=== PATIENT | male | born 1980 | race American Indian/Alaskan Native ===

== ENCOUNTER 2018-10-05 23:01 | Emergency (ER) | payer MEDICAID ==
[2018-10-05 23:12] VITALS: BMI 61.7
[2018-10-05 23:31] VITALS: RESP 18; TEMP 98.6
--- NOTE | 2018-10-05 23:43 | ED PDOC ---
Arrival/HPI - General Chief Complaint: Male Genitourinary - History of Present Illness Narrative History of Present Illness (Text): 10/05/18 23:38 38 y/o male, pmh including htn/gastritis, nkda, c/o hematuria on and off x 2-3 days. Pt. stated that he has on off hematuria x 2-3 days, last episode tonight, usually at the end of the urination, admits dysuria and holding his urine when he doesn't have bathroom around but no weakness in stream of urine, no night sweat, no flank pain, no fever or chills, no change in vision, no numbness or tingling, no other medical or psychological complaints. Past Medical History - Provider Review Nursing Documentation Reviewed: Yes - Tetanus Immunization Tetanus Immunization: Unknown - Cardiac Hx Hypertension: Yes - Pulmonary Hx Respiratory Disorders: Yes (bronchitis, smokes marijuana, sleep apnea) - Musculoskeletal/Rheumatological Hx Musculoskeletal Disorders: Yes (arthritis L hand, walks with a cane at home) - Gastrointestinal Hx Gastrointestinal Disorders: Yes (galbladder removed, hernia, GERD) Hx Gastroesophageal Reflux: Yes - Psychiatric Hx Depression: No Hx Emotional Abuse: No Hx Physical Abuse: No Hx Substance Use: Yes - Surgical History Hx Musculoskeletal Surgery: Yes (R knee surgery) - Suicidal Assessment Feels Threatened In Home Enviroment: No Family/Social History - Physician Review Nursing Documentation Reviewed: Yes Family/Social History: Unknown Family HX Smoking Status: Never Smoked Hx Alcohol Use: No Hx Substance Use: Yes Substance used: Marijuana Hx Substance Use Treatment: No Allergies/Home Meds Allergies/Adverse Reactions: Allergies No Known Allergies Allergy (Verified 07/13/12 13:26) Home Medications: Home Meds Medication Instructions Recorded Confirmed Omeprazole [PrilOSEC] 20 mg PO BID 07/13/12 10/05/18 Albuterol/Ipratropium [Combivent] 2 puff IH Q12 PRN 07/15/12 10/05/18 cloNIDine [clonidine HCl] 0.1 mg PO TID 07/15/12 10/05/18 Furosemide [Lasix] 40 mg PO DAILY 10/05/18 10/05/18 Lisinopril [Zestril] 20 mg PO DAILY 10/05/18 10/05/18 Review of Systems - Review of Systems Constitutional: absent: Fatigue, Fevers Eyes: absent: Vision Changes ENT: absent: Hearing Changes Respiratory: absent: SOB, Cough Cardiovascular: absent: Chest Pain Gastrointestinal: absent: Abdominal Pain, Diarrhea, Nausea, Vomiting Genitourinary Male: Dysuria, Frequency, Hematuria. absent: Urinary Output Changes Musculoskeletal: absent: Arthralgias, Back Pain Skin: absent: Rash, Pruritis Neurological: absent: Headache, Dizziness Psychiatric: absent: Anxiety, Depression, Suicidal Ideation Physical Exam Vital Signs Reviewed: Yes Vital Signs Temp Pulse Resp BP Pulse Ox 10/05/18 23:25 98.6 F 71 18 174/101 H 100 Temperature: Afebrile Blood Pressure: Hypertensive Pulse: Regular Respiratory Rate: Normal Appearance: Positive for: Well-Appearing, Non-Toxic, Comfortable Pain Distress: Mild Mental Status: Positive for: Alert and Oriented X 3 - Systems Exam Head: Present: Atraumatic, Normocephalic Pupils: Present: PERRL Extroacular Muscles: Present: EOMI Conjunctiva: Present: Normal Mouth: Present: Moist Mucous Membranes Neck: Present: Normal Range of Motion Respiratory/Chest: Present: Clear to Auscultation, Good Air Exchange. No: Respiratory Distress, Accessory Muscle Use Cardiovascular: Present: Regular Rate and Rhythm, Normal S1, S2. No: Murmurs Abdomen: No: Tenderness, Distention, Peritoneal Signs, Rebound, Guarding Genitourinary Male: Present: Normal External Genitalia, Circumcised Penis. No: Lesions, Penile Discharge, Testicle Tenderness, Penile Swelling, Masses, Erythema, Hernias, Testicle Swelling Back: Present: Normal Inspection. No: CVA Tenderness, Midline Tenderness, Paraspinal Tenderness Upper Extremity: Present: Normal Inspection. No: Cyanosis, Edema Lower Extremity: Present: Normal Inspection. No: Edema Neurological: Present: GCS=15, CN II-XII Intact, Speech Normal Skin: Present: Warm, Dry, Normal Color. No: Rashes Psychiatric: Present: Alert, Oriented x 3, Normal Insight, Normal Concentration Medical Decision Making ED Course and Treatment: 10/05/18 23:44 -labs/ua -IVF/toradol/pyridium -Observe and reassess 10/06/18 01:24 -Labs show wbc 12.3(afebrile, can be stress induced, IV rocephine ordered), K+ 3.4 (potassium 20meq po ordered). -UA show +UTI, IV rocephine ordered -Urine cultures ordered -Pt. feels well, afebrile, non-septic -Discharge home with Macrobid, pyridium, stay hydrated, bed rest, please don't hold the urine, follow up with your own pmd and urologist within 2 days, return to the ER for any new or worsening signs or symptoms. - RAD Interpretation Radiology Orders: 10/05/18 23:37 ABD & PELVIS W/O PO OR IV CONT [CT] Stat - PA / MACHINE COREMAKER / Resident Statement MD/DO has reviewed & agrees with the documentation as recorded. Disposition/Present on Arrival - Present on Arrival Any Indicators Present on Arrival: No History of DVT/PE: No History of Uncontrolled Diabetes: No Urinary Catheter: No History of Decub. Ulcer: No History Surgical Site Infection Following: None - Disposition Have Diagnosis and Disposition been Completed?: Yes Diagnosis: UTI (urinary tract infection) Disposition: HOME/ ROUTINE Disposition Time: 00:54 Patient Plan: Discharge Patient Problems: Current Active Problems Problem Status Onset UTI (urinary tract infection) Acute Condition: IMPROVED Additional Instructions: -Discharge home with Macrobid, pyridium, stay hydrated, bed rest, please don't hold the urine, follow up with your own pmd and urologist within 2 days, return to the ER for any new or worsening signs or symptoms. Prescriptions: Nitrofurantoin Macrocrystals [Macrobid] 100 mg PO BID #14 cap Phenazopyridine HCl [Pyridium] 200 mg PO TID #5 tablet Referrals: Karina Fortune MD [Staff Provider] - Follow up with primary [facility] [place] - Follow up with primary Forms: [employer] (Croatian), WORK NOTE
[2018-10-06 00:40] LABS: BASO # 0.03 K/mm3 (0.0-2.0); BASO % 0.2 % (0.0-3.0); EOS # 0.1 (0.0-0.7); EOS % 1.1 % (1.5-5.0); GRAN # 9.03 (1.4-6.5); GRAN % 73.5 % (50.0-68.0); HEMOGLOBIN 14.6 g/dL (14.0-18.0); LYMPH # 2.3 (1.2-3.4); LYMPH % 18.5 % (22.0-35.0); MEAN CELL VOLUME 85.1 fl (80.0-105.0); MEAN CORPUSCULAR HEMOGLOBIN 28.9 pg (25.0-35.0); MEAN PLATELET VOLUME 10.3 fl (7.0-11.0); MONO # 0.8 (0.1-0.6); MONO % 6.7 % (1.0-6.0); RBC 5.05 10^6/uL (3.5-6.1); RED CELL DISTRIBUTION WIDTH 19.5 % (11.5-14.5); WHITE BLOOD COUNT 12.3 10^3/uL (4.5-11.0)
[2018-10-06 00:47] LABS: PH,URINE 6.5 (4.7-8.0); URINE APPEARANCE CLOUDY (CLEAR); URINE BILIRUBIN MODERATE (NEGATIVE); URINE BLOOD LARGE (NEGATIVE); URINE COLOR YELLOW (YELLOW); URINE GLUCOSE (UA) NEGATIVE (NEGATIVE); URINE LEUKOCYTE ESTERASE MODERATE Leu/uL (NEGATIVE); URINE PROTEIN 100 mg/dL (<30 mg/dL)
[2018-10-06] MEDS ORDERED: cefTRIAXone 1 gm 1 GM/100 ML BAG IVPB STA (00:47)
[2018-10-06] MEDS ORDERED: Sodium Chloride 0.9% 1,000 ML IV STA (00:48)
[2018-10-06 01:07] LABS: URINE BACTERIA MOD (NEG); URINE EPITHELIAL CELLS 0 - 2 /hpf (0-5); URINE WBC TNTC /hpf (0-6)
[2018-10-06 01:19] LABS: INR 1.19; PARTIAL THROMBOPLASTIN TIME 33.8 Seconds (25.1-36.5); PROTHROMBIN TIME 13.6 SECONDS (9.4-12.5)
[2018-10-06 01:22] LABS: ALB/GLOB RATIO 0.9 (1.1-1.8); ALBUMIN 3.7 g/dL (3.0-4.8); ALT/SGPT 34 U/L (7-56); AST/SGOT 21 U/L (17-59); BLOOD UREA NITROGEN 14 mg/dL (7-21); GFR NON-AFRICAN AMERICAN > 60
[2018-10-06] MEDS ORDERED: Potassium Chloride 20 mEq ER Tab PO STA (01:24)
[2018-10-06 03:02] VITALS: BP 145/78; PULSE 63; O2SAT 100
== END 2018-10-06 03:01 | disposition home or self-care (01) ==
LOC: ED 23:01
DX: N39.0 Urinary tract infection, site not specified (principal); I10 Essential (primary) hypertension
CPT/HCPCS: 80053; 81001; 85025; 85610; 85730; 87086; 87181; 96365; 96375; 99284; J0696; J1885; J7030

== ENCOUNTER 2019-03-14 04:38 | Emergency (ER) | payer MEDICAID ==
[2019-03-14 04:46] VITALS: BMI 48.8
[2019-03-14 04:54] VITALS: RESP 18; TEMP 98
[2019-03-14] MEDS ORDERED: Labetalol 5 mg/ml Inj 20ML IV STA (05:21)
[2019-03-14] MEDS: Labetalol 5mg/ml (4ml) ONE ×2 (05:31→06:05)
--- NOTE | 2019-03-14 05:38 | ED PDOC ---
Arrival/HPI - General Chief Complaint: Headache Time Seen by Provider: 03/14/19 04:41 Historian: Patient - History of Present Illness Narrative History of Present Illness (Text): 03/14/19 05:00 Kameron Kyle is a 38 year old male, whose past medical history includes gastric sleeve, hypertension, and gastritis, who presents to the ED complaining of headache. Patient reports associated nausea and vomiting. Patient denies any fever, chills, chest pain, shortness of breath, diarrhea, urinary symptoms, back pain, neck pain, dizziness, or any other complaints. Symptom Onset: Gradual Symptom Course: Unchanged Activities at Onset: Light Context: Home Past Medical History - Provider Review Nursing Documentation Reviewed: Yes Primary Care Provider: Mei Bah - Tetanus Immunization Tetanus Immunization: Unknown - Cardiac Hx Cardiac Disorders: Yes Hx Hypertension: Yes - Pulmonary Hx Respiratory Disorders: Yes Hx Asthma: Yes Hx Bronchitis: Yes Hx Sleep Apnea: Yes - Musculoskeletal/Rheumatological Hx Musculoskeletal Disorders: Yes (arthritis L hand, walks with a cane at home) - Gastrointestinal Hx Gastrointestinal Disorders: Yes (galbladder removed, hernia, GERD) Hx Gastroesophageal Reflux: Yes - Psychiatric Hx Depression: No Hx Emotional Abuse: No Hx Physical Abuse: No Hx Substance Use: Yes - Surgical History Hx Musculoskeletal Surgery: Yes (R knee surgery) Other/Comment: Gastric Sleeve 07/06/18 - Suicidal Assessment Feels Threatened In Home Enviroment: No Family/Social History - Physician Review Nursing Documentation Reviewed: Yes Family/Social History: Unknown Family HX Smoking Status: Never Smoked Hx Alcohol Use: No Hx Substance Use: Yes Substance used: Marijuana Hx Substance Use Treatment: No Allergies/Home Meds Allergies/Adverse Reactions: Allergies No Known Allergies Allergy (Verified 03/14/19 04:46) Home Medications: Home Meds Medication Instructions Recorded Confirmed Omeprazole [PrilOSEC] 20 mg PO BID 07/13/12 03/14/19 Albuterol/Ipratropium [Combivent] 2 puff IH Q12 PRN 07/15/12 03/14/19 cloNIDine [clonidine HCl] 0.1 mg PO TID 07/15/12 03/14/19 Furosemide [Lasix] 40 mg PO DAILY 10/05/18 03/14/19 Lisinopril [Zestril] 20 mg PO DAILY 10/05/18 03/14/19 Review of Systems - Physician Review All systems were reviewed & negative as marked: Yes - Review of Systems Constitutional: Normal. absent: Fevers Eyes: Normal ENT: Normal Respiratory: Normal. absent: SOB, Cough Cardiovascular: Normal. absent: Chest Pain Gastrointestinal: Nausea, Vomiting. absent: Abdominal Pain, Diarrhea Genitourinary Male: Normal. absent: Dysuria, Frequency, Hematuria, Urinary Output Changes Musculoskeletal: Normal. absent: Back Pain, Neck Pain Skin: Normal. absent: Rash Neurological: Headache. absent: Dizziness Endocrine: Normal Hemo/Lymphatic: Normal Psychiatric: Normal Physical Exam Vital Signs Reviewed: Yes Vital Signs Temp Pulse Resp BP Pulse Ox 03/14/19 04:46 98 F 65 18 143/91 H 100 Temperature: Afebrile Blood Pressure: Normal Pulse: Regular Respiratory Rate: Normal Appearance: Positive for: Well-Appearing, Non-Toxic, Comfortable Pain Distress: None Mental Status: Positive for: Alert and Oriented X 3 - Systems Exam Head: Present: Atraumatic, Normocephalic Pupils: Present: PERRL Extroacular Muscles: Present: EOMI Conjunctiva: Present: Normal Mouth: Present: Moist Mucous Membranes Neck: Present: Normal Range of Motion Respiratory/Chest: Present: Clear to Auscultation, Good Air Exchange. No: Respiratory Distress, Accessory Muscle Use Cardiovascular: Present: Regular Rate and Rhythm, Normal S1, S2. No: Murmurs Abdomen: No: Tenderness, Distention, Peritoneal Signs Back: Present: Normal Inspection Upper Extremity: Present: Normal Inspection. No: Cyanosis, Edema Lower Extremity: Present: Normal Inspection. No: Edema Neurological: Present: GCS=15, CN II-XII Intact, Speech Normal Skin: Present: Warm, Dry, Normal Color. No: Rashes Psychiatric: Present: Alert, Oriented x 3, Normal Insight, Normal Concentration Medical Decision Making ED Course and Treatment: 03/14/19 05:00 Impression: 38 year old male complaining of headache, nausea, and vomiting. Plan: -- CT Head w/o contrast -- Reglan -- Trandate -- Reassess and disposition Prior Visits: Notes and results from previous visits were reviewed. Progress Notes: - RAD Interpretation Radiology Orders: 03/14/19 05:08 HEAD W/O CONTRAST [CT] Stat - Medication Orders Current Medication Orders: Discontinued Medications Labetalol HCl (Trandate) 20 mg IV STAT STA Stop: 03/14/19 05:22 Metoclopramide HCl (Reglan) 10 mg IVP STAT STA Stop: 03/14/19 05:09 Last Admin: 03/14/19 05:20 Dose: 10 mg IVP Administration Document 03/14/19 05:20 JANNA (Rec: 03/14/19 05:20 [id number]) Charges for Administration # of IVP Administrations 1 - Scribe Statement The provider has reviewed the documentation as recorded by the Monique Hayden Provider Scribe Attestation: All medical record entries made by the Scribe were at my direction and personally dictated by me. I have reviewed the chart and agree that the record accurately reflects my personal performance of the history, physical exam, medical decision making, and the department course for this patient. I have also personally directed, reviewed, and agree with the discharge instructions and disposition. Disposition/Present on Arrival - Present on Arrival Any Indicators Present on Arrival: No History of DVT/PE: No History of Uncontrolled Diabetes: No Urinary Catheter: No History of Decub. Ulcer: No History Surgical Site Infection Following: None - Disposition Have Diagnosis and Disposition been Completed?: Yes Diagnosis: Hypertension Disposition: HOME/ ROUTINE Disposition Time: 06:30 Condition: GOOD Discharge Instructions (ExitCare): High Blood Pressure in Adults Referrals: Mei Bah MD [Primary Care Provider] - Follow up with primary Forms: [employer] (American)
[2019-03-14 06:07] VITALS: BP 153/120; PULSE 62; O2SAT 96
--- NOTE | 2019-03-14 08:58 | CT ---
Date of service: 03/14/2019 PROCEDURE: CT HEAD WITHOUT CONTRAST. HISTORY: rodriguez COMPARISON: None available. TECHNIQUE: Axial computed tomography images were obtained through the head/brain without intravenous contrast. Radiation dose: Total exam DLP = 977.77 mGy-cm. This CT exam was performed using one or more of the following dose reduction techniques: Automated exposure control, adjustment of the mA and/or kV according to patient size, and/or use of iterative reconstruction technique. FINDINGS: HEMORRHAGE: No intracranial hemorrhage. BRAIN: No mass effect or edema. No atrophy or chronic microvascular ischemic changes. VENTRICLES: Unremarkable. No hydrocephalus. CALVARIUM: Unremarkable. PARANASAL SINUSES: Unremarkable as visualized. No significant inflammatory changes. MASTOID AIR CELLS: Unremarkable as visualized. No inflammatory changes. OTHER FINDINGS: The report concurs with the preliminary [facility] report IMPRESSION: Normal CT of the Head.
== END 2019-03-14 06:59 | disposition home or self-care (01) ==
LOC: ED 04:38
DX: I10 Essential (primary) hypertension (principal)
CPT/HCPCS: 70450; 96374; 99285; J2765